=== PATIENT | female | born 1960 | race Caucasian/White ===

== ENCOUNTER 2017-05-29 07:54 | Day surgery (SDC) | payer OTHER ==
[~2017-05-29 07:54] MED LIST: Acetaminophen TAB* 325 MG PO PRN; Buffered Lidocaine 0.9% SYRIN* 5 ML/SYR SYRINGE INTRADERM ONE
[2017-05-29] MEDS ORDERED: fentaNYL* 50 MCG/ML 2 ML VIAL (100 MCG VIAL) ONE ×2 (08:40→09:24)
[2017-05-29] MEDS ORDERED: Midazolam* 1 MG/ML 2 ML VIAL (2 MG) ONE ×2 (08:40→09:27)
[2017-05-29 10:19] VITALS: BP 131/80
[2017-05-29] MEDS ORDERED: Lidocaine 1% MPF* 2 ML VIAL ONE (14:43)
[2017-05-29] MEDS ORDERED: Tetracaine 0.5% OPTH.SOL 4 ML* 1 DROP BTL ONE (14:43)
[2017-05-29] MEDS ORDERED: Phenylephrine 2.5% OPTH.SOL* 2 ML BTL ONE (14:43)
[2017-05-29] MEDS ORDERED: Flurbiprofen 0.03% OPTH.SOL* 2.5 ML BTL ONE (14:43)
[2017-05-29] MEDS ORDERED: Cyclopentolate 1% OPTH.SOL* 2 ML BTL ONE (14:43)
[2017-05-29] MEDS ORDERED: Buffered Lidocaine 0.9% SYRIN* 5 ML/SYR SYRINGE ONE (14:43)
[2017-05-29] MEDS ORDERED: Tropicamide 1% OPTH.SOL* BTL ONE (14:43)
[2017-05-29] MEDS ORDERED: acetaZOLAMIDE TAB* 250 MG ONE (14:43)
[2017-05-29] MEDS ORDERED: Neomycin/Polymy/Dex OPHTH.OIN* 3.5 GM ONE (14:43)
[2017-05-29] MEDS ORDERED: Povidone Iodine 5% OPTH* 30 ML BTL ONE (14:43)
--- NOTE | 2017-05-29 16:48 | OP ---
DATE OF OPERATION: 05/29/17 - [facility] DATE OF : 60 SURGEON: Ricardo Rincon MD. ANESTHESIOLOGIST: Christiano Ontiveros MD ANESTHESIA: Monitored anesthesia care. PRE-OP DIAGNOSIS: Dense cataract, right eye. POST-OP DIAGNOSIS: Dense cataract, right eye. OPERATIVE PROCEDURE: Cataract surgery of the right eye. IMPLANTS: SN60WF 15.5 diopter lens to the right eye. COMPLICATIONS: None. DESCRIPTION OF PROCEDURE: The patient was given phenylephrine 2.5% and cyclopentolate 1% eye drops to the operative eye in the preoperative area. The patient was brought to the operating room, where a time-out was taken to identify the correct patient, site and side of the surgery. The patient's right eye was prepped and draped in the usual sterile fashion with 5% Betadine. A second time- out was taken to verify the correct patient, site, and side of the surgery and correct lens selection. A lid speculum was placed to the right eye. A 1-mm paracentesis blade was used to make a clear corneal incision in the superotemporal position. Preservative-free 1% lidocaine was injected into the anterior chamber. DisCoVisc was then injected into the anterior chamber. A 2.75 -mm keratome blade was used to make a triplanar incision in the inferotemporal position. A cystotome initiated a capsulorrhexis, which was completed with Utrata forceps in a continuous and curvilinear manner. Hydrodissection of the lens was performed with BSS on a cannula. The lens could be spun in the capsular bag. The phacoemulsification handpiece was used with a divide-and- conquer technique to remove the nucleus in its entirety with a 69.25 CDE. Due to the density of the lens, DisCoVisc was applied again during nucleus removal in order to protect the endothelium. The I/A handpiece then removed with a residual cortical lens material. DisCoVisc was injected to inflate the capsular bag. The planned SN60WF 15.5 diopter lens was injected in the capsular bag. The residual DisCoVisc was removed from the eye with the I/A handpiece. The corneal incisions were hydrated and no leaks occurred at physiologic pressure around 20 mmHg per palpation. The lid speculum was removed and drapes removed. Artificial tear ointment was placed on the surface of the operative eye. An adhesive patch and shield was then placed on the operative eye. The patient was taken to the postoperative area in stable condition. [id number]/[facility] #: [id number] MTDD
== END 2017-05-29 10:16 | disposition home or self-care (01) ==
LOC: OREAST 07:54
PROVIDERS: ATTEND Student in an Organized Health Care Education/Training Program
DX: H25.13 Age-related nuclear cataract, bilateral (principal); E11.3292 Type 2 diabetes mellitus with mild nonproliferative diabetic retinopathy without macular edema, left eye; I10 Essential (primary) hypertension; Z79.4 Long term (current) use of insulin; Z79.84 Long term (current) use of oral hypoglycemic drugs; E78.00 Pure hypercholesterolemia, unspecified; Z85.850 Personal history of malignant neoplasm of thyroid; Z85.42 Personal history of malignant neoplasm of other parts of uterus
CPT/HCPCS: A9270-GY; J2250; J3010; V2632

== ENCOUNTER 2017-06-05 09:23 | Day surgery (SDC) | payer OTHER ==
[2017-06-05] MEDS ORDERED: fentaNYL* 50 MCG/ML 2 ML VIAL (100 MCG VIAL) ONE (10:38)
[2017-06-05] MEDS ORDERED: Midazolam* 1 MG/ML 2 ML VIAL (2 MG) ONE ×2 (10:38→11:00)
[2017-06-05 11:42] VITALS: BP 122/66
[2017-06-05] MEDS ORDERED: Phenylephrine 2.5% OPTH.SOL* 2 ML BTL ONE (16:37)
[2017-06-05] MEDS ORDERED: Neomycin/Polymy/Dex OPHTH.OIN* 3.5 GM ONE (16:37)
[2017-06-05] MEDS ORDERED: Tropicamide 1% OPTH.SOL* BTL ONE (16:37)
[2017-06-05] MEDS ORDERED: Povidone Iodine 5% OPTH* 30 ML BTL ONE (16:37)
[2017-06-05] MEDS ORDERED: acetaZOLAMIDE TAB* 250 MG ONE (16:37)
[2017-06-05] MEDS ORDERED: Tetracaine 0.5% OPTH.SOL 4 ML* 1 DROP BTL ONE (16:37)
[2017-06-05] MEDS ORDERED: Lidocaine 1% MPF* 2 ML VIAL ONE (16:37)
[2017-06-05] MEDS ORDERED: Cyclopentolate 1% OPTH.SOL* 2 ML BTL ONE (16:37)
[2017-06-05] MEDS ORDERED: Ketorolac 0.5% OPHTH (NF) 0.5 % 5 ML BTL ONE (16:38)
[2017-06-05] MEDS ORDERED: Buffered Lidocaine 0.9% SYRIN* 5 ML/SYR SYRINGE ONE (16:38)
--- NOTE | 2017-06-05 17:55 | OP ---
DATE OF OPERATION: 06/05/17 - [facility] DATE OF : 60 SURGEON: Ricardo Rincon MD ANESTHESIOLOGIST: Christiano Ontiveros MD ANESTHESIA: Monitored anesthesia care. PRE-OP DIAGNOSIS: Cataract, left eye. POST-OP DIAGNOSIS: Cataract, left eye. OPERATIVE PROCEDURE: Cataract surgery of the left eye. IMPLANTS: SN60WF 14.5 diopter lens to the left eye. COMPLICATIONS: None. DESCRIPTION OF PROCEDURE: The patient was given phenylephrine 2.5% and cyclopentolate 1% eye drops to the operative eye in the preoperative area. The patient was brought to the operating room, where a time-out was taken to identify the correct patient, site and side of surgery. The patient's left eye was prepped and draped in the usual sterile fashion with 5% Betadine. A second time-out was taken to verify the correct patient, site and side of surgery and correct lens selection. A lid speculum was placed to the left eye. A 1-mm paracentesis blade was used to make a clear corneal incision in the inferotemporal position. Preservative-free 1% lidocaine was injected into the anterior chamber. DisCoVisc was then injected into the anterior chamber. A 2.75-mm keratome blade was used to make a triplanar incision at the superotemporal position. A cystotome initiated a capsulorrhexis, which was completed with Utrata forceps in a continuous and curvilineal manner. Hydrodissection of the lens was performed with BSS on a cannula. The lens could be spun in the capsular bag. The phacoemulsification handpiece was used with a [id number] technique to remove the nucleus in its entirety with 12.28 CDE. The I/A handpiece then removed the residual cortical lens material. DisCoVisc was injected to inflate the capsular bag. The planned SN60WF 14.5 diopter lens was injected into the capsular bag. The residual DisCoVisc was removed from the eye with the I/A handpiece. The corneal incisions were hydrated and no leaks occurred at physiologic pressure around 20 mmHg per palpation. The lid speculum was removed and drapes removed. Maxitrol ointment was placed to the surface of the operative eye. An adhesive patch and shield was placed on the operative eye. The patient was taken to the postoperative area in stable condition. [id number]/[facility] #: [id number] JONAS
== END 2017-06-05 11:38 | disposition home or self-care (01) ==
LOC: OREAST 09:23
PROVIDERS: ATTEND Student in an Organized Health Care Education/Training Program
DX: H25.12 Age-related nuclear cataract, left eye (principal); Z96.1 Presence of intraocular lens; E11.3293 Type 2 diabetes mellitus with mild nonproliferative diabetic retinopathy without macular edema, bilateral; I10 Essential (primary) hypertension; E78.00 Pure hypercholesterolemia, unspecified; Z85.42 Personal history of malignant neoplasm of other parts of uterus; Z79.84 Long term (current) use of oral hypoglycemic drugs; Z79.4 Long term (current) use of insulin; Z85.850 Personal history of malignant neoplasm of thyroid
CPT/HCPCS: A9270-GY; J2250; J3010; V2632